=== PATIENT | female | born 1965 | race Caucasian/White ===

== ENCOUNTER 2024-12-06 13:54 | Inpatient (IN) | payer OTHER ==
[~2024-12-06] VITALS: Ht 165.1 cm; Wt 58.5 kg
[2024-12-07 19:20] VITALS: BP 111/64; PULSE 96; RESP 18; TEMP 97.4; O2SAT 97
[2024-12-07] MEDS ORDERED: PHENOL 1.4% 177 ML SPRAY BOTTLE PO PRN (20:45)
[2024-12-07] MEDS: *CLINICAL-WARFARIN SODIUM DOSING CLINICAL ONE (20:50)
[2024-12-07] MEDS: DOCUSATE SODIUM 100 MG CAPSULE PO SCH (21:00)
[2024-12-07] MEDS: MELATONIN 3 MG TABLET PO PRN (21:46)
[2024-12-07] MEDS: ATORVASTATIN CALCIUM 40 MG TABLET PO SCH (21:46)
[2024-12-07] MEDS: LIDOCAINE 5% TRANSDERMAL PATCH TD SCH (21:47)
[2024-12-07] MEDS: ESCITALOPRAM OXALATE 10 MG TABLET PO SCH (21:48)
[2024-12-07] MEDS: HydrOXYzine PAMOATE 25 MG CAPSULE PO PRN (21:50)
[2024-12-07] MEDS: ETHYL ALCOHOL 62% ANTISEPTIC NASAL SANITIZER 0.6 ML AMPUL NASAL SCH (21:58)
[2024-12-07] MEDS: OSIMERTINIB 80 MG GT SCH (22:22)
[2024-12-08] MEDS: OMEPRAZOLE 20 MG CAPSULE PO SCH (05:57)
[2024-12-08 08:00] VITALS: BP 106/68; PULSE 95; RESP 19; TEMP 97.7; O2SAT 95
[2024-12-08] MEDS: FOLIC ACID 1 MG TABLET PO SCH (08:42)
[2024-12-08] MEDS: -LIDODERM PATCH NOTE- MISC SCH (08:43)
[2024-12-08 08:51] LABS: HEMATOCRIT 30.5 % (36-46); MEAN CORPUSCULAR HEMOGLOBIN 32.3 pg (26.0-34.0); MEAN CORPUSCULAR HGB CONC 32.8 G/dL (31.0-37.0); MEAN CORPUSCULAR VOLUME 99 fL (80-100); PLATELET COUNT (AUTO) 123 K/uL (150-450); RED CELL DISTRIBUTION WIDTH 18.5 % (11.5-14.5); WHITE BLOOD COUNT (AUTO) 14.5 K/uL (4.5-11.0)
[2024-12-08 09:06] LABS: ALBUMIN 2.7 g/dL (3.4-5.0); BILIRUBIN,TOTAL 1.1 mg/dL (0.1-1.0); CALCIUM, TOTAL 9.5 mg/dL (8.8-10.5); CREATININE 4.09 mg/dL (0.60-1.30); TOTAL PROTEIN, SERUM 5.8 g/dL (6.4-8.2)
[2024-12-08 09:10] LABS: PROTHROMBIN TIME 33.5 SEC (9.4-11.6)
[2024-12-08 11:29] LABS: BAND NEUTROPHILS % (MANUAL) 4 % (0-5); EOSINOPHILS % (MANUAL) 6 % (1-6); LYMPHOCYTES % (MANUAL) 4 % (22-44); MONOCYTES % (MANUAL) 12 % (2-9); SEGMENTED NEUTROPHILS % 74 % (40-70); TOTAL CELLS COUNTED 100
[2024-12-08] MEDS: ONDANSETRON 4 MG TABLET PO PRN (16:56)
[2024-12-08 20:00] VITALS: BP 95/63; PULSE 97; RESP 18; TEMP 98.1; O2SAT 95
[2024-12-08] MEDS: ERGOCALCIFEROL (VIT D2) 50,000 UNITS [1,250 MCG] CAPSULE PO SCH (21:00)
[2024-12-08 21:49] LABS: APPEARANCE,URINE CLEAR (CLEAR); BILIRUBIN,URINE NEGATIVE (NEGATIVE); COLOR,URINE LIGHT YELLOW (YELLOW); GLUCOSE, URINE (UA) NEGATIVE (NEGATIVE); KETONES,URINE NEGATIVE (NEGATIVE); LEUKOCYTE ESTERASE ,URINE NEGATIVE (NEGATIVE); NITRATE,URINE NEGATIVE (NEGATIVE); OCCULT BLOOD,URINE MODERATE (NEGATIVE); PH,URINE 5.5 (5.0-8.0); PROTEIN,URINE 30-70 mg/dL (NEGATIVE); SPECIFIC GRAVITIY, URINE 1.019 (1.003-1.030); UROBILINOGEN,URINE <=1.0 mg/dL (<=1.0)
[2024-12-08 22:00] LABS: BACTERIA,URINE None Seen /HPF (None Seen); SQUAMOUS EPITHELIAL CELL,UR Few /LPF (None Seen); WBC,URINE None Seen /HPF (0-5)
[2024-12-09] MEDS: OxyCODONE HCL 5 MG IR TABLET PO PRN (00:49)
[2024-12-09 08:00] VITALS: BP 101/54; PULSE 100; RESP 19; TEMP 97.6; O2SAT 97
[2024-12-09] MEDS: ACETAMINOPHEN 325 MG TABLET PO PRN (09:51)
[2024-12-09] MEDS ORDERED: NALOXONE HCL 0.4 MG/ML VIAL IVP PRN (11:15)
[2024-12-09] MEDS: FentaNYL 25 MCG/HOUR PATCH TD SCH (13:07)
[2024-12-09 14:16] LABS: BASOPHILS % (AUTO) 0.6 % (0.0-2.0); EOSINOPHILS % (AUTO) 3.3 % (1.0-6.0); HEMATOCRIT 27.8 % (36-46); LYMPHOCYTES # (AUTO) 0.9 K/uL (1.0-4.8); MEAN CORPUSCULAR HEMOGLOBIN 31.9 pg (26.0-34.0); MEAN CORPUSCULAR HGB CONC 32.4 G/dL (31.0-37.0); MEAN CORPUSCULAR VOLUME 99 fL (80-100); MONOCYTES # (AUTO) 1.6 K/uL (0.1-1.0); MONOCYTES % (AUTO) 11.6 % (2.0-9.0); NEUTROPHILS # (AUTO) 10.4 K/uL (1.8-7.7); NEUTROPHILS % (AUTO) 77.5 % (40.0-70.0); PLATELET COUNT (AUTO) 95 K/uL (150-450); RED BLOOD CELL COUNT(AUTO) 2.83 MIL/uL (4.00-5.20); WHITE BLOOD COUNT (AUTO) 13.5 K/uL (4.5-11.0)
[2024-12-09 14:23] LABS: CALCIUM, TOTAL 9.1 mg/dL (8.8-10.5); CREATININE 4.54 mg/dL (0.60-1.30); POTASSIUM 4.3 mmol/L (3.5-5.1)
[2024-12-09 14:28] LABS: PROTHROMBIN TIME 25.9 SEC (9.4-11.6)
[2024-12-09] MEDS: WARFARIN SODIUM 2.5 MG TABLET PO SCH (17:04)
[2024-12-09 20:00] VITALS: BP 95/50; PULSE 94; RESP 18; TEMP 97.9; O2SAT 96
[2024-12-09] MEDS: LORazepam 0.5 MG TABLET PO SCH (21:21)
[2024-12-10] MEDS ORDERED: LORA-999 PO ×2 (02:57→11:46)
[2024-12-10] MEDS ORDERED: ERGO500054 PO ×2 (02:57→11:46)
[2024-12-10] MEDS ORDERED: ESCI-8 PO ×2 (02:57→11:46)
[2024-12-10] MEDS ORDERED: ATOR40TA28 PO (02:57)
[2024-12-10] MEDS ORDERED: ONDA-104 PO (02:57)
[2024-12-10] MEDS ORDERED: ACET-2247 PO (02:57)
[2024-12-10] MEDS ORDERED: OXYC5 PO ×2 (02:57→11:46)
[2024-12-10] MEDS ORDERED: FENT-92 TD ×2 (02:57→11:46)
[2024-12-10] MEDS ORDERED: FOLI-130 PO ×2 (02:57→11:46)
[2024-12-10] MEDS ORDERED: LIDO700A15 TP (02:57)
[2024-12-10] MEDS ORDERED: DOCU-385 PO ×2 (02:57→11:46)
[2024-12-10] MEDS ORDERED: WARF2.5T10 PO (02:57)
[2024-12-10] MEDS ORDERED: OMEP20 PO ×2 (02:57→11:46)
[2024-12-10 06:28] VITALS: BP 109/62; PULSE 95; RESP 18
[2024-12-10 07:18] LABS: PROTHROMBIN TIME 27.7 SEC (9.4-11.6)
[2024-12-10 08:00] VITALS: BP 101/64; PULSE 104; RESP 18; TEMP 97.6; O2SAT 97
[2024-12-10] MEDS ORDERED: ATOR40TA71 PO (11:46)
[2024-12-10] MEDS ORDERED: ONDA4 PO (11:46)
[2024-12-10] MEDS ORDERED: FentaNYL 12 MCG/HOUR PATCH TD SCH (14:00)
[2024-12-10] MEDS: WARFARIN SODIUM 1 MG TABLET PO SCH (16:57)
[2024-12-10 21:12] VITALS: BP 99/59; PULSE 100; RESP 18; TEMP 97.7; O2SAT 95
[2024-12-11 02:27] VITALS: O2SAT 95
[2024-12-11 08:00] VITALS: BP 94/54; PULSE 98; RESP 18; TEMP 98; O2SAT 96
[2024-12-11 09:54] LABS: PROTHROMBIN TIME 35.4 SEC (9.4-11.6)
[2024-12-11 15:09] VITALS: O2SAT 96
[2024-12-11 20:01] VITALS: BP 87/49; PULSE 91; RESP 18; TEMP 98.1; O2SAT 94
[2024-12-11 23:07] VITALS: BP 99/50; PULSE 87
[2024-12-12 00:10] VITALS: O2SAT 94
[2024-12-12 08:30] VITALS: BP 84/48; PULSE 96; RESP 18; TEMP 98.2; O2SAT 96
[2024-12-12 12:40] VITALS: BP 95/54; PULSE 94
[2024-12-12 12:50] VITALS: O2SAT 96
[2024-12-12] MEDS: LORazepam 0.5 MG TABLET PO PRN (13:08)
== END 2024-12-12 14:20 | disposition hospice, home (50) | DRG 56 ==
LOC: 2WR 12-07 19:16
PROVIDERS: ADMIT Physical Medicine & Rehabilitation; ATTEND Physical Medicine & Rehabilitation
DX: G81.94 Hemiplegia, unspecified affecting left nondominant side (principal); I63.511 Cerebral infarction due to unspecified occlusion or stenosis of right middle cerebral artery; C34.90 Malignant neoplasm of unspecified part of unspecified bronchus or lung; E46 Unspecified protein-calorie malnutrition; N17.9 Acute kidney failure, unspecified; N18.5 Chronic kidney disease, stage 5; J91.8 Pleural effusion in other conditions classified elsewhere; E87.1 Hypo-osmolality and hyponatremia; D53.9 Nutritional anemia, unspecified; D69.6 Thrombocytopenia, unspecified; E78.5 Hyperlipidemia, unspecified; F41.9 Anxiety disorder, unspecified; D72.829 Elevated white blood cell count, unspecified; G25.0 Essential tremor; G89.29 Other chronic pain; Z74.09 Other reduced mobility; Z66 Do not resuscitate; I34.0 Nonrheumatic mitral (valve) insufficiency; R13.10 Dysphagia, unspecified; R79.1 Abnormal coagulation profile; M47.816 Spondylosis without myelopathy or radiculopathy, lumbar region; R47.1 Dysarthria and anarthria; R41.89 Other symptoms and signs involving cognitive functions and awareness; M54.50 Low back pain, unspecified; Z95.828 Presence of other vascular implants and grafts; Z86.73 Personal history of transient ischemic attack (TIA), and cerebral infarction without residual deficits; Z86.718 Personal history of other venous thrombosis and embolism; Z86.711 Personal history of pulmonary embolism; Z85.828 Personal history of other malignant neoplasm of skin; Z85.118 Personal history of other malignant neoplasm of bronchus and lung; Z79.01 Long term (current) use of anticoagulants; Z51.5 Encounter for palliative care; Z92.21 Personal history of antineoplastic chemotherapy; Z68.21 Body mass index [BMI] 21.0-21.9, adult
CPT/HCPCS: 71045; 80048; 80053; 81001; 85025; 85610; 87081; 92507; 92523; 92526; 92610; 93306; 97112; 97163; 97167; 97530; 97535; Q0162; 36415-L1; 36415-TC